=== PATIENT | male | born 1940 | race Caucasian/White ===

== ENCOUNTER 2017-11-08 13:09 | Inpatient (IN) | payer OTHER ==
--- NOTE | 2017-11-08 14:18 | ED Physician Chart ---
ED Chief Complaint/HPI - Patient Information Date Seen:: 11/08/17 Time Seen:: 14:00 Chief Complaint:: suicide ideation History of Present Illness:: Patient's been having suicidal ideation for more than one month. He states he would like to go to sleep and not wake up. He also thought about jumping off a second story of his house. ED Review of Systems - Review of Systems General/Constitutional: No fever, No chills Skin: No skin lesions Head: No headache Eyes: No loss of vision ENT: No earache Neck: No neck pain Cardio Vascular: No chest pain Pulmonary: No SOB GI: No nausea, No vomiting, No diarrhea G/U: No dysuria Musculoskeletal: No bone or joint pain Endocrine: No polyuria, No polydipsia Psychiatric: Prior psych history Hematopoietic: No bruising Allergic/Immuno: No urticaria Neurological: No syncope ED Past Medical History - Past Medical History Past Medical History: CAD, Other (status post myocardial infarction; benign prostatic hypertrophy) Family History: Heart disease, Cancer Social History: Non Smoker, No Alcohol, No Drug Use Surgical History: other (left shoulder) Psychiatricy History: Depression Medication: Reviewed Family Medical History - Family Member Mother Age: 70 Ethnicity: Non- Living Status: Hx Family Cancer: Yes (LUNG) Father Age: 76 Ethnicity: Non- Living Status: Hx Family Coronary Artery Disease: Yes ([place]) ED Physical Exam - Physical Examination General/Constitutional: Well-developed, well-nourished, Alert, No distress Other Gen/Cons comments:: Alert and oriented to the exact date Head: Atraumatic Eyes: Lids, conjuctiva normal, PERRL Skin: Nl inspection, No rash, No skin lesions, No ecchymosis ENMT: External ears, nose nl, Nasal exam nl, Oropharynx nl Other ENMT comments:: 3 out of 4 periodontal disease Neck: No nuchal rigidity Respiratory: Nl effort/Exclusion, Clear to Auscultation, No Wheeze/Rhonchi/Rales Cardio Vascular: RRR GI: No tenderness/rebounding/guarding : No CVA tenderness Other Extremities comments:: 2 out of 4 pretibial pitting edema Neuro/Psych: Alert/oriented Misc: Normal back ED Labs/Radiology/EKG Results - Lab Results Results: Laboratory Results - last 24 hr 11/08/17 14:27 Urine Source CLEAN C Urine Color YELLOW Urine Clarity CLEAR Urine pH 5.5 Ur Specific [place] >= 1.030 Urine Protein NEGATIVE Urine Glucose (UA) NEGATIVE Urine Ketones NEGATIVE Urine Blood NEGATIVE Urine Nitrate NEGATIVE Urine Bilirubin NEGATIVE Urine Urobilinogen 0.2 Ur Leukocyte Esterase NEGATIVE Urine RBC NONE SEEN Urine WBC NONE SEEN Ur Epithelial Cells NONE SEEN Urine Bacteria NONE SEEN - Radiology Results Results: Laboratory Results - last 24 hr 11/08/17 11/08/17 11/08/17 14:27 14:27 14:27 WBC 5.8 RBC 4.94 Hgb 15.9 Hct 46.8 MCV 94.7 MCH 32.1 H MCHC Differential 33.9 RDW 13.3 Plt Count 194 MPV 8.2 Neutrophils % 62.6 Lymphocytes % 21.6 Monocytes % 12.4 H Eosinophils % 3.3 Basophils % 0.1 Sodium 138 Potassium 3.9 Chloride 103 Carbon Dioxide 28.6 Anion Gap 10.3 BUN 16 Creatinine 1.3 Est GFR ( Amer) TNP Est GFR (Non-Af Amer) TNP BUN/Creatinine Ratio 12.3 Glucose 125 H Calcium 8.9 Total Bilirubin 0.7 AST 19 ALT 25 Alkaline Phosphatase 78 Total Protein 5.9 L Albumin 3.8 L Globulin 2.1 Albumin/Globulin Ratio 1.8 Triglycerides 189 H Cholesterol 109 LDL Cholesterol Direct 49 L HDL Cholesterol 45 Urine Source CLEAN C Urine Color YELLOW Urine Clarity CLEAR Urine pH 5.5 Ur Specific [place] >= 1.030 Urine Protein NEGATIVE Urine Glucose (UA) NEGATIVE Urine Ketones NEGATIVE Urine Blood NEGATIVE Urine Nitrate NEGATIVE Urine Bilirubin NEGATIVE Urine Urobilinogen 0.2 Ur Leukocyte Esterase NEGATIVE Urine RBC NONE SEEN Urine WBC NONE SEEN Ur Epithelial Cells NONE SEEN Urine Bacteria NONE SEEN - EKG Interpretations Rate & Rhythm: normal sinus rhythm with a rate of 91 [place]: normal axis Comments:: Unifocal PVCs; right bundle-branch block ED Septic Shock - . Is Septic Shock (SBP<90, OR Lactate>4 mmol\L) present?: No ED Reassessment (Disposition) - Reassessment Reassessment Condition:: Unchanged - Diagnosis Diagnosis:: Suicidal ideation; depression - Patient Disposition Admitted to:: [facility] Admitting Medical Physician:: Allen Wall Admitting Psych Physician:: Mariel Little Condition at Disposition:: Stable, Unchanged
[2017-11-08 14:32] LABS: URINE MICROSCOPIC INDICATED? YES; URINE SOURCE CLEAN C
[2017-11-08 14:46] LABS: URINE BILIRUBIN NEGATIVE (NEGATIVE); URINE BLOOD NEGATIVE (NEGATIVE); URINE GLUCOSE (UA) NEGATIVE (NEGATIVE); URINE KETONE NEGATIVE (NEGATIVE); URINE LEUKOCYTE ESTERASE NEGATIVE (NEGATIVE); URINE NITRATE NEGATIVE (NEGATIVE); URINE PH 5.5 (4.6 - 8.0); URINE PROTEIN NEGATIVE (NEGATIVE); URINE UROBILINOGEN 0.2 E.U./dL (0.2 - 1.0)
[2017-11-08 14:50] LABS: URINE CLARITY CLEAR (CLEAR); URINE COLOR YELLOW
[2017-11-08 14:51] LABS: URINE BACTERIA NONE SEEN /hpf (NONE SEEN); URINE EPITHELIAL CELLS NONE SEEN /lpf (FEW); URINE RBC NONE SEEN /hpf (0-5); URINE WBC NONE SEEN /hpf (0-5)
[2017-11-08 14:58] LABS: ALB/GLOB RATIO 1.8 (1.0-1.8); ALBUMIN 3.8 gm/dL (4.2-5.5); ALKALINE PHOSPHATASE 78 U/L (34-104); ANION GAP 10.3 (7.0-16.0); BILIRUBIN,TOTAL 0.7 mg/dL (0.3-1.0); BUN - UREA NITROGEN 16 mg/dL (7-25); CALCIUM SERUM 8.9 mg/dL (8.6-10.3); CARBON DIOXIDE 28.6 mEq/L (21.0-31.0); CHLORIDE 103 mEq/L (98-107); CHOLESTEROL 109 mg/dL (<200); GLUCOSE 125 mg/dL (70-105); HDL -HIGH DENSITY LIPOPROTEIN 45 mg/dL (23-92); POTASSIUM SERUM 3.9 mEq/L (3.5-5.1); SGOT 19 U/L (13-39); SGPT/ALT 25 U/L (7-52); SODIUM SERUM 138 mEq/L (136-145); TOTAL PROTEIN,SERUM 5.9 gm/dL (6.0-8.3); TRIGLYCERIDES 189 mg/dL (<150)
[2017-11-08 15:11] LABS: % BASOPHILS 0.1 % (0.0-2.0); % EOSINOPHILS 3.3 % (0.0-5.0); % LYMPHOCYTES 21.6 % (20.0-50.0); % MONOCYTES 12.4 % (2.0-10.0); % NEUTROPHILS 62.6 % (40.0-80.0); EOSINOPHILE ABSOLUTE 0.2 Th/cmm (0.1-0.4); HEMATOCRIT 46.8 % (41.0-60); HEMOGLOBIN 15.9 gm/dL (12-16); LYMPHOCYTE ABSOLUTE 1.3 Th/cmm (1.5-3.0); MEAN CELL VOLUME 94.7 fl (80-99); MEAN CORPUSCULAR HEMOGLOBIN 32.1 pg (27.0-31.0); MEAN CORPUSCULAR HGB CONC 33.9 pg (28.0-36.0); MEAN PLATELET VOLUME 8.2 fl; MONOCYTE ABSOLUTE 0.7 Th/cmm (0.3-1.0); NEUTROPHILE ABSOLUTE 3.6 Th/cmm (1.8-8.0); PLATELET COUNT 194 Th/cmm (150-400); RED BLOOD COUNT 4.94 Mil/cmm (3.80-5.80); RED CELL DISTRIBUTION WIDTH 13.3 % (11.5-20.0); WHITE BLOOD COUNT 5.8 Th/cmm (4.8-10.8)
[2017-11-08 15:36] LABS: CREATININE - SERUM 1.3 mg/dL (0.7-1.3)
[2017-11-08 17:10] VITALS: BP 135/75
[2017-11-08] MEDS ORDERED: Magnesium Hydroxide (MOM) 30 mL UDC PO PRN (18:45)
[2017-11-08] MEDS ORDERED: Maalox 30 mL Cup PO PRN (18:45)
[2017-11-09] MEDS: Multivitamin Tab PO SCH (09:06)
--- NOTE | 2017-11-09 15:22 | Internal Medicine Prog Note ---
Internal Medicine Subjective - Subjective Service Date: 11/09/17 ([id number]) Internal Medicine Objective - Results Result Diagrams: 11/08/17 14:27 11/08/17 14:27 Recent Labs: Laboratory Last Values WBC 5.8 Th/cmm (4.8-10.8) 11/08/17 14:27 RBC 4.94 Mil/cmm (3.80-5.80) 11/08/17 14:27 Hgb 15.9 gm/dL (12-16) 11/08/17 14:27 Hct 46.8 % (41.0-60) 11/08/17 14:27 MCV 94.7 fl (80-99) 11/08/17 14:27 MCH 32.1 pg (27.0-31.0) H 11/08/17 14:27 MCHC Differential 33.9 pg (28.0-36.0) 11/08/17 14:27 RDW 13.3 % (11.5-20.0) 11/08/17 14:27 Plt Count 194 Th/cmm (150-400) 11/08/17 14:27 MPV 8.2 fl 11/08/17 14:27 Neutrophils % 62.6 % (40.0-80.0) 11/08/17 14:27 Lymphocytes % 21.6 % (20.0-50.0) 11/08/17 14:27 Monocytes % 12.4 % (2.0-10.0) H 11/08/17 14:27 Eosinophils % 3.3 % (0.0-5.0) 11/08/17 14:27 Basophils % 0.1 % (0.0-2.0) 11/08/17 14:27 Sodium 138 mEq/L (136-145) 11/08/17 14:27 Potassium 3.9 mEq/L (3.5-5.1) 11/08/17 14:27 Chloride 103 mEq/L (98-107) 11/08/17 14:27 Carbon Dioxide 28.6 mEq/L (21.0-31.0) 11/08/17 14:27 Anion Gap 10.3 (7.0-16.0) 11/08/17 14:27 BUN 16 mg/dL (7-25) 11/08/17 14:27 Creatinine 1.3 mg/dL (0.7-1.3) 11/08/17 14:27 Est GFR ( Amer) TNP 11/08/17 14:27 Est GFR (Non-Af Amer) TNP 11/08/17 14:27 BUN/Creatinine Ratio 12.3 11/08/17 14:27 Glucose 125 mg/dL (70-105) H 11/08/17 14:27 Calcium 8.9 mg/dL (8.6-10.3) 11/08/17 14:27 Total Bilirubin 0.7 mg/dL (0.3-1.0) 11/08/17 14:27 AST 19 U/L (13-39) 11/08/17 14:27 ALT 25 U/L (7-52) 11/08/17 14:27 Alkaline Phosphatase 78 U/L (34-104) 11/08/17 14:27 Total Protein 5.9 gm/dL (6.0-8.3) L 11/08/17 14:27 Albumin 3.8 gm/dL (4.2-5.5) L 11/08/17 14:27 Globulin 2.1 gm/dL 11/08/17 14:27 Albumin/Globulin Ratio 1.8 (1.0-1.8) 11/08/17 14:27 Triglycerides 189 mg/dL (<150) H 11/08/17 14:27 Cholesterol 109 mg/dL (<200) 11/08/17 14:27 LDL Cholesterol Direct 49 mg/dL (75-193) L 11/08/17 14:27 HDL Cholesterol 45 mg/dL (23-92) 11/08/17 14:27 TSH 2.55 uIU/ml (0.34-5.60) 11/08/17 14:27 Urine Source CLEAN C 11/08/17 14:27 Urine Color YELLOW 11/08/17 14:27 Urine Clarity CLEAR (CLEAR) 11/08/17 14:27 Urine pH 5.5 (4.6 - 8.0) 11/08/17 14:27 Ur Specific [place] >= 1.030 (1.005-1.030) 11/08/17 14:27 Urine Protein NEGATIVE mg/dL (NEGATIVE) 11/08/17 14:27 Urine Glucose (UA) NEGATIVE mg/dL (NEGATIVE) 11/08/17 14:27 Urine Ketones NEGATIVE mg/dL (NEGATIVE) 11/08/17 14:27 Urine Blood NEGATIVE (NEGATIVE) 11/08/17 14:27 Urine Nitrate NEGATIVE (NEGATIVE) 11/08/17 14:27 Urine Bilirubin NEGATIVE (NEGATIVE) 11/08/17 14:27 Urine Urobilinogen 0.2 E.U./dL (0.2 - 1.0) 11/08/17 14:27 Ur Leukocyte Esterase NEGATIVE (NEGATIVE) 11/08/17 14:27 Urine RBC NONE SEEN /hpf (0-5) 11/08/17 14:27 Urine WBC NONE SEEN /hpf (0-5) 11/08/17 14:27 Ur Epithelial Cells NONE SEEN /lpf (FEW) 11/08/17 14:27 Urine Bacteria NONE SEEN /hpf (NONE SEEN) 11/08/17 14:27 RPR NONREACTIVE (NONREACTIVE) 11/08/17 14:27 - Physical Exam Vitals and I&O: Vital Signs Temp 97.8 F 11/08/17 20:00 Pulse 102 11/08/17 20:00 Resp 20 11/08/17 20:00 BP 122/74 11/08/17 20:00 Pulse Ox 97 11/08/17 20:00 Active Medications: Current Medications Acetaminophen (Tylenol) 650 mg PO Q4HR PRN PRN Reason: Mild Pain / Temp above 100 Stop: 01/07/18 18:44 Al Hydrox/Mg Hydrox/Simethicone (Maalox) 30 ml PO Q4HR PRN PRN Reason: GI DISTRESS Stop: 01/07/18 18:44 Aspirin (Aspirin Chewable) 81 mg PO DAILY [facility] Stop: 01/09/18 08:59 Carvedilol (Coreg) 6.25 mg PO BID [facility] Stop: 01/08/18 16:59 Clopidogrel Bisulfate (Plavix) 75 mg PO DAILY [facility] Stop: 01/09/18 08:59 Finasteride (Proscar) 5 mg PO DAILY [facility] PRN Reason: Protocol Stop: 01/09/18 08:59 Lorazepam (Ativan) 0.5 mg PO Q4HR PRN; Protocol PRN Reason: Anxiety Stop: 12/08/17 18:44 Lorazepam (Ativan) 0.5 mg PO DAILY [facility] PRN Reason: Protocol Stop: 01/09/18 08:59 Magnesium Hydroxide (Milk Of Magnesia) 30 ml PO HS PRN PRN Reason: Constipation Multivitamins/Vitamin C (Theragran) 1 tab PO DAILY [facility] Stop: 01/08/18 08:59 Last Admin: 11/09/17 09:06 Dose: 1 tab Naproxen (Naprosyn) 250 mg PO Q12H PRN PRN Reason: Pain (Mild) Stop: 01/08/18 13:19 Quetiapine Fumarate (Seroquel) 25 mg PO BID [facility] PRN Reason: Protocol Stop: 01/08/18 16:59 Simvastatin (Zocor) 10 mg PO QPM [facility] PRN Reason: Protocol Stop: 01/08/18 16:59 Tamsulosin HCl (Flomax) 0.4 mg PO DAILY [facility] Stop: 01/09/18 08:59 Temazepam (Restoril) 15 mg PO HS PRN; Protocol PRN Reason: Insomnia Stop: 01/08/18 13:19 Vitamin E (Vitamin E) 1,000 iu PO DAILY [facility] Stop: 01/09/18 08:59 Zolpidem Tartrate (Ambien) 5 mg PO HS PRN PRN Reason: Insomnia Stop: 01/07/18 18:44 Last Admin: 11/08/17 22:19 Dose: 5 mg
--- NOTE | 2017-11-09 19:07 | History & Physical ---
ADMIT DATE: 11/09/2017 CHIEF COMPLAINT: Suicidal ideation. HISTORY OF PRESENT ILLNESS: This is a 77-year-old male who has been having suicidal ideation for about a month. The patient is now admitted to the Geropsych Unit. PAST MEDICAL HISTORY: CAD, status post VT, BPH. FAMILY HISTORY: Noncontributory. SOCIAL HISTORY: The patient denies any alcohol or illicit drug usage and tobacco smoking. SURGICAL HISTORY: Left shoulder. MEDICATIONS: Please see medication reconciliation. REVIEW OF SYSTEMS: GENERAL: Denies any fevers and chills. CARDIOVASCULAR: Denies chest pain. RESPIRATORY: Denies shortness of breath. GASTROINTESTINAL: Denies nausea, vomiting, abdominal pain. GENITOURINARY: Denies increased frequency or dysuria. NEUROLOGIC: No headaches, seizures or syncope. PSYCHIATRIC: As stated above. EXTREMITIES: No leg pain or swelling. PHYSICAL EXAMINATION: GENERAL: The patient is well-developed, well-nourished, no acute distress. VITAL SIGNS: Temperature at 97.8, heart rate ___, blood pressure 122/74, respirations 20, O2 sat 97%. HEENT: Head; normocephalic, atraumatic. NECK: Supple. No mass. LUNGS: Clear bilaterally. HEART: Regular rhythm. ABDOMEN: Soft, nontender. LABORATORY DATA: WBC 5.8, H and H 15.9 and 46.8, platelet of 194. Sodium 138, potassium 3.9, chloride 103, BUN 16, creatinine 1.3. ASSESSMENT: 1. Suicidal ideation. 2. History of coronary artery disease. 3. History of VT. 4. BPH. PLAN: We will continue the patient's home medications. Fall precautions will be initiated. We will continue to follow this patient. JOB# [id number]
--- NOTE | 2017-11-10 01:31 | Psychosocial Evaluation ---
DATE OF SERVICE: 11/08/2017 IDENTIFYING DATA: The patient is a 77-year-old male living with his family. Information obtained by directly interviewing the patient as well as reviewing the admission papers and they are reliable. JUSTIFICATION FOR HOSPITALIZATION: The patient is admitted here on a voluntary basis in view of his acute psychosis. CHIEF COMPLAINT: "I don't know what is happening in here and there is not much for me to do in here." HISTORY OF PRESENT ILLNESS: This is the first psychiatric hospitalization to [facility] for this patient who is reported to have been acting erratic and has been agitated and has been throwing stuff. The patient has been noted to be on Seroquel 25 mg twice a day along with Restoril and Ativan. The patient's sleep and appetite prior to the hospitalization are reported to be poor. When I am asking the details about the information, the patient is getting easily irritable and is stating that everything is written I need to look into the paperwork. PAST PSYCHIATRIC HISTORY: Details are not known. MEDICAL HISTORY AND PHYSICAL EXAMINATION: Requested to be done by Dr. Wall. SUBSTANCE ABUSE HISTORY: None. PHYSICAL OR SEXUAL ABUSE HISTORY: None. LEGAL PROBLEMS: None at this time. STRENGTH AND ASSETS: The patient is motivated. MENTAL STATUS EXAMINATION: The patient is a 77-year-old, looking his stated age, superficially cooperative. Eye contact is poor. Mood is noted to be irritable. Affect is constricted. The patient is dysphoric. The patient has been having difficult time to cope with the stress. The patient is not able to contract for safety. The patient is reported to have been getting easily agitated and has been trying to be very disruptive. The patient has been denying any command hallucination, but the patient is noted to be very paranoid and has been stating that the noise has been bothering him and he does not belong in here. The patient's attention span and concentration are noted to be fair. Short and long-term are noted to be fair at this time. DIAGNOSES AT THE TIME OF ADMISSION: AXIS I: Psychotic disorder, not otherwise specified. AXIS II: None. AXIS III: As per Dr. Wall. IMMEDIATE TREATMENT PLAN: The patient is going to be observed on inpatient unit, provided with supportive psychotherapy. The patient is going to be closely monitored. Once stabilized, the patient is going to be discharged to [facility] to be followed up on an outpatient basis. JOB# [id number]
[2017-11-10] MEDS: Multivitamin Tab PO SCH (09:23)
[2017-11-10] MEDS: Aspirin 81mg Chewable Tab PO SCH (09:23)
[2017-11-10] MEDS: Vitamin E 1,000 IU Sgl PO SCH (09:23)
--- NOTE | 2017-11-10 17:10 | Internal Medicine Prog Note ---
Internal Medicine Subjective - Subjective Service Date: 11/10/17 Patient seen and examined:: with staff Patient is:: awake Per staff patient has:: no adverse event, tolerating meds Internal Medicine Objective - Results Result Diagrams: 11/08/17 14:27 11/08/17 14:27 Recent Labs: Laboratory Last Values WBC 5.8 Th/cmm (4.8-10.8) 11/08/17 14:27 RBC 4.94 Mil/cmm (3.80-5.80) 11/08/17 14:27 Hgb 15.9 gm/dL (12-16) 11/08/17 14:27 Hct 46.8 % (41.0-60) 11/08/17 14:27 MCV 94.7 fl (80-99) 11/08/17 14:27 MCH 32.1 pg (27.0-31.0) H 11/08/17 14:27 MCHC Differential 33.9 pg (28.0-36.0) 11/08/17 14:27 RDW 13.3 % (11.5-20.0) 11/08/17 14:27 Plt Count 194 Th/cmm (150-400) 11/08/17 14:27 MPV 8.2 fl 11/08/17 14:27 Neutrophils % 62.6 % (40.0-80.0) 11/08/17 14:27 Lymphocytes % 21.6 % (20.0-50.0) 11/08/17 14:27 Monocytes % 12.4 % (2.0-10.0) H 11/08/17 14:27 Eosinophils % 3.3 % (0.0-5.0) 11/08/17 14:27 Basophils % 0.1 % (0.0-2.0) 11/08/17 14:27 Sodium 138 mEq/L (136-145) 11/08/17 14:27 Potassium 3.9 mEq/L (3.5-5.1) 11/08/17 14:27 Chloride 103 mEq/L (98-107) 11/08/17 14:27 Carbon Dioxide 28.6 mEq/L (21.0-31.0) 11/08/17 14:27 Anion Gap 10.3 (7.0-16.0) 11/08/17 14:27 BUN 16 mg/dL (7-25) 11/08/17 14:27 Creatinine 1.3 mg/dL (0.7-1.3) 11/08/17 14:27 Est GFR ( Amer) TNP 11/08/17 14:27 Est GFR (Non-Af Amer) TNP 11/08/17 14:27 BUN/Creatinine Ratio 12.3 11/08/17 14:27 Glucose 125 mg/dL (70-105) H 11/08/17 14:27 Calcium 8.9 mg/dL (8.6-10.3) 11/08/17 14:27 Total Bilirubin 0.7 mg/dL (0.3-1.0) 11/08/17 14:27 AST 19 U/L (13-39) 11/08/17 14:27 ALT 25 U/L (7-52) 11/08/17 14:27 Alkaline Phosphatase 78 U/L (34-104) 11/08/17 14:27 Total Protein 5.9 gm/dL (6.0-8.3) L 11/08/17 14:27 Albumin 3.8 gm/dL (4.2-5.5) L 11/08/17 14:27 Globulin 2.1 gm/dL 11/08/17 14:27 Albumin/Globulin Ratio 1.8 (1.0-1.8) 11/08/17 14:27 Triglycerides 189 mg/dL (<150) H 11/08/17 14:27 Cholesterol 109 mg/dL (<200) 11/08/17 14:27 LDL Cholesterol Direct 49 mg/dL (75-193) L 11/08/17 14:27 HDL Cholesterol 45 mg/dL (23-92) 11/08/17 14:27 TSH 2.55 uIU/ml (0.34-5.60) 11/08/17 14:27 Urine Source CLEAN C 11/08/17 14:27 Urine Color YELLOW 11/08/17 14:27 Urine Clarity CLEAR (CLEAR) 11/08/17 14:27 Urine pH 5.5 (4.6 - 8.0) 11/08/17 14:27 Ur Specific [place] >= 1.030 (1.005-1.030) 11/08/17 14:27 Urine Protein NEGATIVE mg/dL (NEGATIVE) 11/08/17 14:27 Urine Glucose (UA) NEGATIVE mg/dL (NEGATIVE) 11/08/17 14:27 Urine Ketones NEGATIVE mg/dL (NEGATIVE) 11/08/17 14:27 Urine Blood NEGATIVE (NEGATIVE) 11/08/17 14:27 Urine Nitrate NEGATIVE (NEGATIVE) 11/08/17 14:27 Urine Bilirubin NEGATIVE (NEGATIVE) 11/08/17 14:27 Urine Urobilinogen 0.2 E.U./dL (0.2 - 1.0) 11/08/17 14:27 Ur Leukocyte Esterase NEGATIVE (NEGATIVE) 11/08/17 14:27 Urine RBC NONE SEEN /hpf (0-5) 11/08/17 14:27 Urine WBC NONE SEEN /hpf (0-5) 11/08/17 14:27 Ur Epithelial Cells NONE SEEN /lpf (FEW) 11/08/17 14:27 Urine Bacteria NONE SEEN /hpf (NONE SEEN) 11/08/17 14:27 RPR NONREACTIVE (NONREACTIVE) 11/08/17 14:27 - Physical Exam Vitals and I&O: Vital Signs Temp 97.3 F 11/09/17 16:21 Pulse 77 11/10/17 09:23 Resp 20 11/09/17 16:21 BP 150/89 11/10/17 09:23 Pulse Ox 98 11/09/17 16:21 Intake & Output 11/09/17 11/10/17 11/10/17 18:59 06:59 18:59 Intake Total 800 Balance 800 Intake: Oral 800 Other: # Voids 2 # Bowel Movements 1 Active Medications: Current Medications Acetaminophen (Tylenol) 650 mg PO Q4HR PRN PRN Reason: Mild Pain / Temp above 100 Stop: 01/07/18 18:44 Al Hydrox/Mg Hydrox/Simethicone (Maalox) 30 ml PO Q4HR PRN PRN Reason: GI DISTRESS Stop: 01/07/18 18:44 Aspirin (Aspirin Chewable) 81 mg PO DAILY [facility] Stop: 01/09/18 08:59 Last Admin: 11/10/17 09:23 Dose: 81 mg Carvedilol (Coreg) 6.25 mg PO BID [facility] Stop: 01/08/18 16:59 Last Admin: 11/10/17 09:23 Dose: 6.25 mg Clopidogrel Bisulfate (Plavix) 75 mg PO DAILY [facility] Stop: 01/09/18 08:59 Last Admin: 11/10/17 09:23 Dose: 75 mg Finasteride (Proscar) 5 mg PO DAILY [facility] PRN Reason: Protocol Stop: 01/09/18 08:59 Last Admin: 11/10/17 09:23 Dose: 5 mg Lorazepam (Ativan) 0.5 mg PO Q4HR PRN; Protocol PRN Reason: Anxiety Stop: 12/08/17 18:44 Magnesium Hydroxide (Milk Of Magnesia) 30 ml PO HS PRN PRN Reason: Constipation Multivitamins/Vitamin C (Theragran) 1 tab PO DAILY [facility] Stop: 01/08/18 08:59 Last Admin: 11/10/17 09:23 Dose: 1 tab Naproxen (Naprosyn) 250 mg PO Q12H PRN PRN Reason: Pain (Mild) Stop: 01/08/18 13:19 Quetiapine Fumarate (Seroquel) 25 mg PO BID [facility] PRN Reason: Protocol Stop: 01/08/18 16:59 Last Admin: 11/10/17 09:24 Dose: 25 mg Simvastatin (Zocor) 10 mg PO QPM [facility] PRN Reason: Protocol Stop: 01/08/18 16:59 Last Admin: 11/09/17 16:39 Dose: 10 mg Tamsulosin HCl (Flomax) 0.4 mg PO DAILY [facility] Stop: 01/09/18 08:59 Last Admin: 11/10/17 09:23 Dose: 0.4 mg Temazepam (Restoril) 15 mg PO HS PRN; Protocol PRN Reason: Insomnia Stop: 01/08/18 13:19 Last Admin: 11/09/17 21:18 Dose: 15 mg Vitamin E (Vitamin E) 1,000 iu PO DAILY [facility] Stop: 01/09/18 08:59 Last Admin: 11/10/17 09:23 Dose: 1,000 iu General: alert HEENT: NC/AT, PERRLA Neck: Supple Lungs: CTAB Cardiovascular: RRR, Normal S1, Normal S2 Abdomen: soft, non-tender, non-distended Neurological: alert Internal Medicine Assmt/Plan - Assessment Assessment: suicidal ideation hx cad 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
--- NOTE | 2017-11-10 18:15 | Progress Notes ---
DATE: 11/10/2017 SUBJECTIVE: Staff was spoken to. The patient is interviewed. Mood is noted to be irritable. Affect is constricted. Insight and judgment are still impaired. The patient is reported to have been having problems in coping with the stress and wanted to end his life. The patient has no insight into his illness. ASSESSMENT: The patient is still not able to contract for his safety. PLAN: The patient is not ready to be discharged to a lower level of care. JOB# [id number]
[2017-11-11] MEDS: Aspirin 81mg Chewable Tab PO SCH (09:31)
[2017-11-11] MEDS: Multivitamin Tab PO SCH (09:34)
[2017-11-11] MEDS: Vitamin E 1,000 IU Sgl PO SCH (09:34)
--- NOTE | 2017-11-11 15:48 | Internal Medicine Prog Note ---
Internal Medicine Subjective - Subjective Service Date: 11/11/17 Patient is:: awake Per staff patient has:: no adverse event, tolerating meds Internal Medicine Objective - Results Result Diagrams: 11/08/17 14:27 11/08/17 14:27 Recent Labs: Laboratory Last Values WBC 5.8 Th/cmm (4.8-10.8) 11/08/17 14:27 RBC 4.94 Mil/cmm (3.80-5.80) 11/08/17 14:27 Hgb 15.9 gm/dL (12-16) 11/08/17 14:27 Hct 46.8 % (41.0-60) 11/08/17 14:27 MCV 94.7 fl (80-99) 11/08/17 14:27 MCH 32.1 pg (27.0-31.0) H 11/08/17 14:27 MCHC Differential 33.9 pg (28.0-36.0) 11/08/17 14:27 RDW 13.3 % (11.5-20.0) 11/08/17 14:27 Plt Count 194 Th/cmm (150-400) 11/08/17 14:27 MPV 8.2 fl 11/08/17 14:27 Neutrophils % 62.6 % (40.0-80.0) 11/08/17 14:27 Lymphocytes % 21.6 % (20.0-50.0) 11/08/17 14:27 Monocytes % 12.4 % (2.0-10.0) H 11/08/17 14:27 Eosinophils % 3.3 % (0.0-5.0) 11/08/17 14:27 Basophils % 0.1 % (0.0-2.0) 11/08/17 14:27 Sodium 138 mEq/L (136-145) 11/08/17 14:27 Potassium 3.9 mEq/L (3.5-5.1) 11/08/17 14:27 Chloride 103 mEq/L (98-107) 11/08/17 14:27 Carbon Dioxide 28.6 mEq/L (21.0-31.0) 11/08/17 14:27 Anion Gap 10.3 (7.0-16.0) 11/08/17 14:27 BUN 16 mg/dL (7-25) 11/08/17 14:27 Creatinine 1.3 mg/dL (0.7-1.3) 11/08/17 14:27 Est GFR ( Amer) TNP 11/08/17 14:27 Est GFR (Non-Af Amer) TNP 11/08/17 14:27 BUN/Creatinine Ratio 12.3 11/08/17 14:27 Glucose 125 mg/dL (70-105) H 11/08/17 14:27 Calcium 8.9 mg/dL (8.6-10.3) 11/08/17 14:27 Total Bilirubin 0.7 mg/dL (0.3-1.0) 11/08/17 14:27 AST 19 U/L (13-39) 11/08/17 14:27 ALT 25 U/L (7-52) 11/08/17 14:27 Alkaline Phosphatase 78 U/L (34-104) 11/08/17 14:27 Total Protein 5.9 gm/dL (6.0-8.3) L 11/08/17 14:27 Albumin 3.8 gm/dL (4.2-5.5) L 11/08/17 14:27 Globulin 2.1 gm/dL 11/08/17 14: Albumin/Globulin Ratio 1.8 (1.0-1.8) 11/08/17 14:27 Triglycerides 189 mg/dL (<150) H 11/08/17 14:27 Cholesterol 109 mg/dL (<200) 11/08/17 14:27 LDL Cholesterol Direct 49 mg/dL (75-193) L 11/08/17 14:27 HDL Cholesterol 45 mg/dL (23-92) 11/08/17 14:27 TSH 2.55 uIU/ml (0.34-5.60) 11/08/17 14:27 Urine Source CLEAN C 11/08/17 14:27 Urine Color YELLOW 11/08/17 14:27 Urine Clarity CLEAR (CLEAR) 11/08/17 14:27 Urine pH 5.5 (4.6 - 8.0) 11/08/17 14:27 Ur Specific [place] >= 1.030 (1.005-1.030) 11/08/17 14:27 Urine Protein NEGATIVE mg/dL (NEGATIVE) 11/08/17 14:27 Urine Glucose (UA) NEGATIVE mg/dL (NEGATIVE) 11/08/17 14:27 Urine Ketones NEGATIVE mg/dL (NEGATIVE) 11/08/17 14:27 Urine Blood NEGATIVE (NEGATIVE) 11/08/17 14:27 Urine Nitrate NEGATIVE (NEGATIVE) 11/08/17 14:27 Urine Bilirubin NEGATIVE (NEGATIVE) 11/08/17 14:27 Urine Urobilinogen 0.2 E.U./dL (0.2 - 1.0) 11/08/17 14:27 Ur Leukocyte Esterase NEGATIVE (NEGATIVE) 11/08/17 14:27 Urine RBC NONE SEEN /hpf (0-5) 11/08/17 14:27 Urine WBC NONE SEEN /hpf (0-5) 11/08/17 14:27 Ur Epithelial Cells NONE SEEN /lpf (FEW) 11/08/17 14:27 Urine Bacteria NONE SEEN /hpf (NONE SEEN) 11/08/17 14:27 RPR NONREACTIVE (NONREACTIVE) 11/08/17 14:27 - Physical Exam Vitals and I&O: Vital Signs Temp 97 F 11/10/17 18:17 Pulse 70 11/11/17 09:35 Resp 18 11/10/17 18:17 BP 140/80 11/11/17 09:35 Pulse Ox 95 11/10/17 18:17 Intake & Output 11/10/17 11/11/17 11/11/17 18:59 06:59 18:59 Intake Total 120 Balance 120 Intake: Oral 120 Other: # Voids 2 Active Medications: Current Medications Acetaminophen (Tylenol) 650 mg PO Q4HR PRN PRN Reason: Mild Pain / Temp above 100 Stop: 01/07/18 18:44 Al Hydrox/Mg Hydrox/Simethicone (Maalox) 30 ml PO Q4HR PRN PRN Reason: GI DISTRESS Stop: 01/07/18 18:44 Aspirin (Aspirin Chewable) 81 mg PO DAILY [facility] Stop: 01/09/18 08:59 Last Admin: 11/11/17 09:31 Dose: 81 mg Carvedilol (Coreg) 6.25 mg PO BID [facility] Stop: 01/08/18 16:59 Last Admin: 11/11/17 09:35 Dose: 6.25 mg Clopidogrel Bisulfate (Plavix) 75 mg PO DAILY [facility] Stop: 01/09/18 08:59 Last Admin: 11/11/17 09:34 Dose: 75 mg Finasteride (Proscar) 5 mg PO DAILY [facility] PRN Reason: Protocol Stop: 01/09/18 08:59 Last Admin: 11/11/17 09:34 Dose: 5 mg Lorazepam (Ativan) 0.5 mg PO Q4HR PRN; Protocol PRN Reason: Anxiety Stop: 12/08/17 18:44 Last Admin: 11/10/17 21:23 Dose: 0.5 mg Magnesium Hydroxide (Milk Of Magnesia) 30 ml PO HS PRN PRN Reason: Constipation Multivitamins/Vitamin C (Theragran) 1 tab PO DAILY [facility] Stop: 01/08/18 08:59 Last Admin: 11/11/17 09:34 Dose: 1 tab Naproxen (Naprosyn) 250 mg PO Q12H PRN PRN Reason: Pain (Mild) Stop: 01/08/18 13:19 Quetiapine Fumarate (Seroquel) 25 mg PO BID [facility] PRN Reason: Protocol Stop: 01/08/18 16:59 Last Admin: 11/11/17 09:34 Dose: 25 mg Simvastatin (Zocor) 10 mg PO QPM [facility] PRN Reason: Protocol Stop: 01/08/18 16:59 Last Admin: 11/10/17 16:53 Dose: 10 mg Tamsulosin HCl (Flomax) 0.4 mg PO DAILY [facility] Stop: 01/09/18 08:59 Last Admin: 11/11/17 09:34 Dose: 0.4 mg Temazepam (Restoril) 15 mg PO HS PRN; Protocol PRN Reason: Insomnia Stop: 01/08/18 13:19 Last Admin: 11/10/17 21:24 Dose: 15 mg Vitamin E (Vitamin E) 1,000 iu PO DAILY [facility] Stop: 01/09/18 08:59 Last Admin: 11/11/17 09:34 Dose: 1,000 iu General: alert HEENT: NC/AT, PERRLA Neck: Supple Lungs: CTAB Cardiovascular: RRR, Normal S1, Normal S2 Abdomen: soft, non-tender, non-distended Neurological: alert Internal Medicine Assmt/Plan - Assessment Assessment: suicidal ideation hx cad 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
--- NOTE | 2017-11-11 23:15 | Progress Notes ---
DATE: 11/11/2017 SUBJECTIVE: Staff was spoken to. Patient is interviewed. Mood is weak and depressed. Affect is constricted. The patient is isolated and withdrawn. The patient is stating that his daughter and his son came by yesterday had a good visit. The patient is stating that he likes to sing and then he states that he has been participating in the groups. ASSESSMENT: The patient continues to be still depressed. PLAN: To continue the patient with the supportive therapy, encouraged the patient to verbalize the concerns rather than to act out. JOB# [id number]
[2017-11-12] MEDS: Aspirin 81mg Chewable Tab PO SCH (10:29)
[2017-11-12] MEDS: Multivitamin Tab PO SCH (10:30)
[2017-11-12] MEDS: Vitamin E 1,000 IU Sgl PO SCH (10:30)
--- NOTE | 2017-11-12 13:16 | Internal Medicine Prog Note ---
Internal Medicine Subjective - Subjective Service Date: 11/12/17 Patient is:: awake Per staff patient has:: no adverse event, tolerating meds Internal Medicine Objective - Results Result Diagrams: 11/08/17 14:27 11/08/17 14:27 Recent Labs: Laboratory Last Values WBC 5.8 Th/cmm (4.8-10.8) 11/08/17 14:27 RBC 4.94 Mil/cmm (3.80-5.80) 11/08/17 14:27 Hgb 15.9 gm/dL (12-16) 11/08/17 14:27 Hct 46.8 % (41.0-60) 11/08/17 14:27 MCV 94.7 fl (80-99) 11/08/17 14:27 MCH 32.1 pg (27.0-31.0) H 11/08/17 14:27 MCHC Differential 33.9 pg (28.0-36.0) 11/08/17 14:27 RDW 13.3 % (11.5-20.0) 11/08/17 14:27 Plt Count 194 Th/cmm (150-400) 11/08/17 14:27 MPV 8.2 fl 11/08/17 14:27 Neutrophils % 62.6 % (40.0-80.0) 11/08/17 14:27 Lymphocytes % 21.6 % (20.0-50.0) 11/08/17 14:27 Monocytes % 12.4 % (2.0-10.0) H 11/08/17 14:27 Eosinophils % 3.3 % (0.0-5.0) 11/08/17 14:27 Basophils % 0.1 % (0.0-2.0) 11/08/17 14:27 Sodium 138 mEq/L (136-145) 11/08/17 14:27 Potassium 3.9 mEq/L (3.5-5.1) 11/08/17 14:27 Chloride 103 mEq/L (98-107) 11/08/17 14:27 Carbon Dioxide 28.6 mEq/L (21.0-31.0) 11/08/17 14:27 Anion Gap 10.3 (7.0-16.0) 11/08/17 14:27 BUN 16 mg/dL (7-25) 11/08/17 14:27 Creatinine 1.3 mg/dL (0.7-1.3) 11/08/17 14:27 Est GFR ( Amer) TNP 11/08/17 14:27 Est GFR (Non-Af Amer) TNP 11/08/17 14:27 BUN/Creatinine Ratio 12.3 11/08/17 14:27 Glucose 125 mg/dL (70-105) H 11/08/17 14:27 Calcium 8.9 mg/dL (8.6-10.3) 11/08/17 14:27 Total Bilirubin 0.7 mg/dL (0.3-1.0) 11/08/17 14:27 AST 19 U/L (13-39) 11/08/17 14:27 ALT 25 U/L (7-52) 11/08/17 14:27 Alkaline Phosphatase 78 U/L (34-104) 11/08/17 14:27 Total Protein 5.9 gm/dL (6.0-8.3) L 11/08/17 14:27 Albumin 3.8 gm/dL (4.2-5.5) L 11/08/17 14:27 Globulin 2.1 gm/dL 11/08/17 14: Albumin/Globulin Ratio 1.8 (1.0-1.8) 11/08/17 14:27 Triglycerides 189 mg/dL (<150) H 11/08/17 14:27 Cholesterol 109 mg/dL (<200) 11/08/17 14:27 LDL Cholesterol Direct 49 mg/dL (75-193) L 11/08/17 14:27 HDL Cholesterol 45 mg/dL (23-92) 11/08/17 14:27 TSH 2.55 uIU/ml (0.34-5.60) 11/08/17 14:27 Urine Source CLEAN C 11/08/17 14:27 Urine Color YELLOW 11/08/17 14:27 Urine Clarity CLEAR (CLEAR) 11/08/17 14:27 Urine pH 5.5 (4.6 - 8.0) 11/08/17 14:27 Ur Specific [place] >= 1.030 (1.005-1.030) 11/08/17 14:27 Urine Protein NEGATIVE mg/dL (NEGATIVE) 11/08/17 14:27 Urine Glucose (UA) NEGATIVE mg/dL (NEGATIVE) 11/08/17 14:27 Urine Ketones NEGATIVE mg/dL (NEGATIVE) 11/08/17 14:27 Urine Blood NEGATIVE (NEGATIVE) 11/08/17 14:27 Urine Nitrate NEGATIVE (NEGATIVE) 11/08/17 14:27 Urine Bilirubin NEGATIVE (NEGATIVE) 11/08/17 14:27 Urine Urobilinogen 0.2 E.U./dL (0.2 - 1.0) 11/08/17 14:27 Ur Leukocyte Esterase NEGATIVE (NEGATIVE) 11/08/17 14:27 Urine RBC NONE SEEN /hpf (0-5) 11/08/17 14:27 Urine WBC NONE SEEN /hpf (0-5) 11/08/17 14:27 Ur Epithelial Cells NONE SEEN /lpf (FEW) 11/08/17 14:27 Urine Bacteria NONE SEEN /hpf (NONE SEEN) 11/08/17 14:27 RPR NONREACTIVE (NONREACTIVE) 11/08/17 14:27 - Physical Exam Vitals and I&O: Vital Signs Temp 98.7 F 11/11/17 20:00 Pulse 77 11/12/17 10:29 Resp 20 11/11/17 20:00 BP 118/66 11/12/17 10:29 Pulse Ox 95 11/11/17 20:00 Intake & Output 11/11/17 11/12/17 11/12/17 18:59 06:59 18:59 Intake Total 120 Balance 120 Intake: Oral 120 Other: # Voids 2 Active Medications: Current Medications Acetaminophen (Tylenol) 650 mg PO Q4HR PRN PRN Reason: Mild Pain / Temp above 100 Stop: 01/07/18 18:44 Al Hydrox/Mg Hydrox/Simethicone (Maalox) 30 ml PO Q4HR PRN PRN Reason: GI DISTRESS Stop: 01/07/18 18:44 Aspirin (Aspirin Chewable) 81 mg PO DAILY [facility] Stop: 01/09/18 08:59 Last Admin: 11/12/17 10:29 Dose: 81 mg Carvedilol (Coreg) 6.25 mg PO BID [facility] Stop: 01/08/18 16:59 Last Admin: 11/12/17 10:29 Dose: 6.25 mg Clopidogrel Bisulfate (Plavix) 75 mg PO DAILY [facility] Stop: 01/09/18 08:59 Last Admin: 11/12/17 10:30 Dose: 75 mg Finasteride (Proscar) 5 mg PO DAILY [facility] PRN Reason: Protocol Stop: 01/09/18 08:59 Last Admin: 11/12/17 10:30 Dose: 5 mg Lorazepam (Ativan) 0.5 mg PO Q4HR PRN; Protocol PRN Reason: Anxiety Stop: 12/08/17 18:44 Last Admin: 11/12/17 00:36 Dose: 0.5 mg Magnesium Hydroxide (Milk Of Magnesia) 30 ml PO HS PRN PRN Reason: Constipation Multivitamins/Vitamin C (Theragran) 1 tab PO DAILY [facility] Stop: 01/08/18 08:59 Last Admin: 11/12/17 10:30 Dose: 1 tab Naproxen (Naprosyn) 250 mg PO Q12H PRN PRN Reason: Pain (Mild) Stop: 01/08/18 13:19 Quetiapine Fumarate (Seroquel) 25 mg PO BID [facility] PRN Reason: Protocol Stop: 01/08/18 16:59 Last Admin: 11/12/17 10:30 Dose: 25 mg Simvastatin (Zocor) 10 mg PO QPM [facility] PRN Reason: Protocol Stop: 01/08/18 16:59 Last Admin: 11/11/17 18:10 Dose: 10 mg Tamsulosin HCl (Flomax) 0.4 mg PO DAILY [facility] Stop: 01/09/18 08:59 Last Admin: 11/12/17 10:30 Dose: 0.4 mg Temazepam (Restoril) 15 mg PO HS PRN; Protocol PRN Reason: Insomnia Stop: 01/08/18 13:19 Last Admin: 11/11/17 21:52 Dose: 15 mg Vitamin E (Vitamin E) 1,000 iu PO DAILY [facility] Stop: 01/09/18 08:59 Last Admin: 11/12/17 10:30 Dose: 1,000 iu General: alert HEENT: NC/AT, PERRLA Neck: Supple Lungs: CTAB Cardiovascular: RRR, Normal S1, Normal S2 Abdomen: soft, non-tender, non-distended Neurological: alert Internal Medicine Assmt/Plan - Assessment Assessment: suicidal ideation hx cad 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
--- NOTE | 2017-11-13 01:57 | Progress Notes ---
DATE: 11/12/2017 SUBJECTIVE: Staff was spoken to. The patient is interviewed. Mood is noted to be less irritable. Insight and judgment are noted to be improving. Impulse control seems to be fair. The patient is stating that he is trying to participate in the groups, but his major concern seems to be not able to sleep well. The patient is stating that he is getting tired, but does not have enough sleep at nighttime. No side effects to the medications are noted. The patient's Seroquel is going to be changed to 50 mg at bedtime and the patient is going to be closely monitored and the patient's coping skills are noted to be improving. The patient's family has been coming and then visiting the patient. The patient is being managed with the 50 mg of Seroquel at nighttime. Since the depression is a concern, the patient is going to be started on a low dose of the Lexapro and he is started with 5 mg in the morning and gradually increased. The patient is able to tolerate it. JOB# [id number]
--- NOTE | 2017-11-13 02:02 | Consultation ---
DATE OF CONSULTATION: 11/10/2017 REQUESTING PHYSICIAN: Mariel Little M.D. TYPE OF CONSULTATION: Psychology. HISTORY OF PRESENT ILLNESS: The patient is a 77-year-old male who is being admitted on a voluntary basis due to what appears to be acute psychosis. According to record review and the patient's self report, the patient has been acting erratic as well as agitated. According to his family, the patient has been throwing items around the house. Upon interview, the patient is irritable and stated that he does not understand why he is being hospitalized. The patient denied any suicidal ideation, plan, or intention. The patient is guarded and somewhat suspicious. He stated he doesn't belong here. 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 PAST MEDICAL HISTORY: Please see history and physical by Dr. Wall. PAST PSYCHIATRIC HISTORY: Details are unknown by the patient as well as by record review. SUBSTANCE ABUSE HISTORY: None. The patient denied any. HOME MEDICATIONS: Please see medication reconciliation sheet. PSYCHOSOCIAL HISTORY: The patient apparently lives with his current , however, he is probably going to divorce her and has asked her to leave his house. 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 He stated his first 12 years ago and he remarried about 2 years ago. He states his currrent has a psychiatric history and he can no longer live with her due to the stress in the relationship. He states he has 3 children. His daughter may be visiting today and he expects his son and [id number] to arrive from [place] in a few days. He stated he most likely will discharge to his daughters house who lives near his home and that he will sell his current home. He states his oldest son is an real estate attorney and will help him with the ongoing arrangements. The patient denied any abuse history or any legal problems. The patient did state that he is adventism, but was not specific. MENTAL STATUS EXAMINATION: The patient appears to be his stated age. The patient's attitude superficially cooperative. Eye contact is poor. Mood is irritable. Affect is constricted. Thought process shows to be linear and logical with no apparent cognitive deficits. The patient seems to be having difficulty coping with the stress in his life. The patient denied any suicidal ideation, plan, or intention. However, record review indicates he has verbalized suicidal thoughts with a plan. The patient denied any auditory or visual hallucinations. It appears that the patient has some paranoid ideation and is verbalizing suspiciousness and some elements of conspiracy to have him hospitalized. Concentration is good; he answered correctly to serial 3 subtractions. He denies bereavement issues. The patient was able to answer yes or no questions to the clinical interview items. The patient is stating that he does not belong here and needs to be discharged. The patient is alert and oriented to self, person, and place, date and time. The patient was able to repeat 3 items given to him the first time. Immediate memory is intact. Short term memory and Long-term memory are intact. He was able to interpret proverbs. Insight is fair to poor. Judgment is compromised. 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 AXIS II: None. AXIS III: Per Dr. Wall. Please see H and P dictation. PLAN: The patient has been evaluated by Dr. Little for psychiatric evaluation and further management of the patient's psychotropic medications. The patient is being closely monitored and will be discharged home or to an outpatient facility once stabilized. We will provide a simple anxiety reduction skill and rehearse this for acquisition of the skill. The patient was able to verbally agree to no self harm and contract for safety by verbalizing any suicidal ideation to his Doctors and his family. We will provide coping strategies for phase of life issues. We will provide de-escalation as well as stress management to increase the patient's frustration tolerance and reduce the patient's agitation and irritability. The patient is denying any depression at this time but admits to anxiety and increased frustration with his circumstances. We will recommend to the family that he follow with both psychiatry and psychology for medication management and continued supportive therapy to assist with the overwhelming stressors he is experiencing. Thank you, Dr. Little for this consult and the opportunity to participate with you in this patient's care. JOB# [id number] [place]
[2017-11-13] MEDS: Aspirin 81mg Chewable Tab PO SCH (09:42)
[2017-11-13] MEDS: Escitalopram Oxalate 5 mg Tab PO SCH (09:43)
[2017-11-13] MEDS: Vitamin E 1,000 IU Sgl PO SCH (09:43)
[2017-11-13] MEDS: Multivitamin Tab PO SCH (09:43)
--- NOTE | 2017-11-13 13:02 | Internal Medicine Prog Note ---
Internal Medicine Subjective - Subjective Service Date: 11/13/17 Patient is:: awake Per staff patient has:: no adverse event, tolerating meds Internal Medicine Objective - Results Result Diagrams: 11/08/17 14:27 11/08/17 14:27 Recent Labs: Laboratory Last Values WBC 5.8 Th/cmm (4.8-10.8) 11/08/17 14:27 RBC 4.94 Mil/cmm (3.80-5.80) 11/08/17 14:27 Hgb 15.9 gm/dL (12-16) 11/08/17 14:27 Hct 46.8 % (41.0-60) 11/08/17 14:27 MCV 94.7 fl (80-99) 11/08/17 14:27 MCH 32.1 pg (27.0-31.0) H 11/08/17 14:27 MCHC Differential 33.9 pg (28.0-36.0) 11/08/17 14:27 RDW 13.3 % (11.5-20.0) 11/08/17 14:27 Plt Count 194 Th/cmm (150-400) 11/08/17 14:27 MPV 8.2 fl 11/08/17 14:27 Neutrophils % 62.6 % (40.0-80.0) 11/08/17 14:27 Lymphocytes % 21.6 % (20.0-50.0) 11/08/17 14:27 Monocytes % 12.4 % (2.0-10.0) H 11/08/17 14:27 Eosinophils % 3.3 % (0.0-5.0) 11/08/17 14:27 Basophils % 0.1 % (0.0-2.0) 11/08/17 14:27 Sodium 138 mEq/L (136-145) 11/08/17 14:27 Potassium 3.9 mEq/L (3.5-5.1) 11/08/17 14:27 Chloride 103 mEq/L (98-107) 11/08/17 14:27 Carbon Dioxide 28.6 mEq/L (21.0-31.0) 11/08/17 14:27 Anion Gap 10.3 (7.0-16.0) 11/08/17 14:27 BUN 16 mg/dL (7-25) 11/08/17 14:27 Creatinine 1.3 mg/dL (0.7-1.3) 11/08/17 14:27 Est GFR ( Amer) TNP 11/08/17 14:27 Est GFR (Non-Af Amer) TNP 11/08/17 14:27 BUN/Creatinine Ratio 12.3 11/08/17 14:27 Glucose 125 mg/dL (70-105) H 11/08/17 14:27 Calcium 8.9 mg/dL (8.6-10.3) 11/08/17 14:27 Total Bilirubin 0.7 mg/dL (0.3-1.0) 11/08/17 14:27 AST 19 U/L (13-39) 11/08/17 14:27 ALT 25 U/L (7-52) 11/08/17 14:27 Alkaline Phosphatase 78 U/L (34-104) 11/08/17 14:27 Total Protein 5.9 gm/dL (6.0-8.3) L 11/08/17 14:27 Albumin 3.8 gm/dL (4.2-5.5) L 11/08/17 14:27 Globulin 2.1 gm/dL 11/08/17 14: Albumin/Globulin Ratio 1.8 (1.0-1.8) 11/08/17 14:27 Triglycerides 189 mg/dL (<150) H 11/08/17 14:27 Cholesterol 109 mg/dL (<200) 11/08/17 14:27 LDL Cholesterol Direct 49 mg/dL (75-193) L 11/08/17 14:27 HDL Cholesterol 45 mg/dL (23-92) 11/08/17 14:27 TSH 2.55 uIU/ml (0.34-5.60) 11/08/17 14:27 Urine Source CLEAN C 11/08/17 14:27 Urine Color YELLOW 11/08/17 14:27 Urine Clarity CLEAR (CLEAR) 11/08/17 14:27 Urine pH 5.5 (4.6 - 8.0) 11/08/17 14:27 Ur Specific [place] >= 1.030 (1.005-1.030) 11/08/17 14:27 Urine Protein NEGATIVE mg/dL (NEGATIVE) 11/08/17 14:27 Urine Glucose (UA) NEGATIVE mg/dL (NEGATIVE) 11/08/17 14:27 Urine Ketones NEGATIVE mg/dL (NEGATIVE) 11/08/17 14:27 Urine Blood NEGATIVE (NEGATIVE) 11/08/17 14:27 Urine Nitrate NEGATIVE (NEGATIVE) 11/08/17 14:27 Urine Bilirubin NEGATIVE (NEGATIVE) 11/08/17 14:27 Urine Urobilinogen 0.2 E.U./dL (0.2 - 1.0) 11/08/17 14:27 Ur Leukocyte Esterase NEGATIVE (NEGATIVE) 11/08/17 14:27 Urine RBC NONE SEEN /hpf (0-5) 11/08/17 14:27 Urine WBC NONE SEEN /hpf (0-5) 11/08/17 14:27 Ur Epithelial Cells NONE SEEN /lpf (FEW) 11/08/17 14:27 Urine Bacteria NONE SEEN /hpf (NONE SEEN) 11/08/17 14:27 RPR NONREACTIVE (NONREACTIVE) 11/08/17 14:27 - Physical Exam Vitals and I&O: Vital Signs Temp 98.1 F 11/13/17 06:47 Pulse 79 11/13/17 09:42 Resp 20 11/13/17 06:47 BP 130/66 11/13/17 09:42 Pulse Ox 98 11/13/17 06:47 Intake & Output 11/12/17 11/13/17 11/13/17 18:59 06:59 18:59 Intake Total 420 Balance 420 Intake: Oral 420 Other: # Voids 1 Active Medications: Current Medications Acetaminophen (Tylenol) 650 mg PO Q4HR PRN PRN Reason: Mild Pain / Temp above 100 Stop: 01/07/18 18:44 Al Hydrox/Mg Hydrox/Simethicone (Maalox) 30 ml PO Q4HR PRN PRN Reason: GI DISTRESS Stop: 01/07/18 18:44 Aspirin (Aspirin Chewable) 81 mg PO DAILY [facility] Stop: 01/09/18 08:59 Last Admin: 11/13/17 09:42 Dose: 81 mg Carvedilol (Coreg) 6.25 mg PO BID [facility] Stop: 01/08/18 16:59 Last Admin: 11/13/17 09:42 Dose: 6.25 mg Clopidogrel Bisulfate (Plavix) 75 mg PO DAILY [facility] Stop: 01/09/18 08:59 Last Admin: 11/13/17 09:42 Dose: 75 mg Escitalopram Oxalate (Lexapro) 5 mg PO DAILY [facility] PRN Reason: Protocol Stop: 01/12/18 08:59 Last Admin: 11/13/17 09:43 Dose: 5 mg Finasteride (Proscar) 5 mg PO DAILY [facility] PRN Reason: Protocol Stop: 01/09/18 08:59 Last Admin: 11/13/17 09:43 Dose: 5 mg Lorazepam (Ativan) 0.5 mg PO Q4HR PRN; Protocol PRN Reason: Anxiety Stop: 12/08/17 18:44 Last Admin: 11/12/17 21:53 Dose: 0.5 mg Magnesium Hydroxide (Milk Of Magnesia) 30 ml PO HS PRN PRN Reason: Constipation Multivitamins/Vitamin C (Theragran) 1 tab PO DAILY [facility] Stop: 01/08/18 08:59 Last Admin: 11/13/17 09:43 Dose: 1 tab Naproxen (Naprosyn) 250 mg PO Q12H PRN PRN Reason: Pain (Mild) Stop: 01/08/18 13:19 Quetiapine Fumarate (Seroquel) 50 mg PO HS [facility] PRN Reason: Protocol Stop: 01/11/18 20:59 Last Admin: 11/12/17 21:00 Dose: 50 mg Simvastatin (Zocor) 10 mg PO QPM [facility] PRN Reason: Protocol Stop: 01/08/18 16:59 Last Admin: 11/12/17 17:53 Dose: 10 mg Tamsulosin HCl (Flomax) 0.4 mg PO DAILY LAKESHA Stop: 01/09/18 08:59 Last Admin: 11/13/17 09:43 Dose: 0.4 mg Temazepam (Restoril) 15 mg PO HS PRN; Protocol PRN Reason: Insomnia Stop: 01/08/18 13:19 Last Admin: 11/12/17 21:52 Dose: 15 mg Vitamin E (Vitamin E) 1,000 iu PO DAILY LAKESHA Stop: 01/09/18 08:59 Last Admin: 11/13/17 09:43 Dose: 1,000 iu General: alert HEENT: NC/AT, PERRLA Neck: Supple Lungs: CTAB Cardiovascular: RRR, Normal S1, Normal S2 Abdomen: soft, non-tender, non-distended Neurological: alert Internal Medicine Assmt/Plan - Assessment Assessment: suicidal ideation hx cad 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
--- NOTE | 2017-11-13 13:22 | Progress Notes ---
DATE: 11/13/2017 SUBJECTIVE: Staff was spoken to. The patient is interviewed. Mood is noted to be anxious. Affect is appropriate. The patient's coping skills are noted to be improving. Sleep and appetite also noted to be improving at this time. The patient is stating that he had a good night sleep last night after the dose of the Seroquel was increased to 50 mg at bedtime. The patient is reporting that his family has been trying to help him and they are trying to get all his belongings into a story and he is going to put the house on sale. ASSESSMENT: The patient's depression is resolving. If the patient continues to be doing this. Possibly patient is going to be discharged tomorrow. JOB# [id number]
[2017-11-14] MEDS: Vitamin E 1,000 IU Sgl PO SCH (08:45)
[2017-11-14] MEDS: Aspirin 81mg Chewable Tab PO SCH (08:46)
[2017-11-14] MEDS: Multivitamin Tab PO SCH (08:47)
[2017-11-14] MEDS: Escitalopram Oxalate 5 mg Tab PO SCH (08:47)
--- NOTE | 2017-11-14 13:08 | Progress Notes ---
DATE: 11/14/2017 PSYCHIATRIC PROGRESS NOTE SUBJECTIVE: Staff was spoken to. The patient is interviewed. Mood is noted to be anxious. Affect is appropriate. The patient is happy that the children have been helping him out and he states he is feeling much better since the time he came in. No side effects to the medications are noted. The patient has been able to verbalize the concerns rather than to act out. ASSESSMENT: The patient is stabilizing. PLAN: To discharge the patient today for followup on outpatient basis. JOB# [id number]
--- NOTE | 2017-11-15 00:03 | Progress Notes ---
DATE: 11/13/2017 SUBJECTIVE: The patient was seen and case discussed with staff. The patient appears to be improving and stated that his depression and anxiety seemed to be lessening. The discussion included possible discharge recommendations with respect to continued care. The patient's family, i.e., the patient's son and [id number] were also present and requested a family meeting and session. This was provided. All aspects of the patient's care were discussed as well as the recommendations and protocol for continued care post discharge. It was impressed upon the family to have a both Psychiatry and Psychology consult set up. The patient and family stated that the patient will be going to live at his daughter's home and that the patient's home would be put up for sale. They also discussed that his current has been asked to leave the home and that any legal matters will be discussed with the family and their consumer attorney. The patient stated that the marital discord has been going on for a long period of time and that he agreed to follow up with a psychologist or a family therapist to assist him in the separation and possible divorce proceedings. The patient was able to verbally contract for safety and no self-harm. OBJECTIVE: Mood: positive for mild anxiety. Patient denied depression. Affect: mood congruent. Thought shows to be linear and logical with a normal pattern of association. Patient denied any delusions, hallucinations or suicidal ideation. Behavior is compliant with care and treatment. ASSESSMENT: 1. Psychotic disorder, not otherwise specified, resolving. 2. Major depressive disorder, single episode, resolving. 3. Anxiety disorder, not otherwise specified, resolving. PLAN: As discussed above, the patient and the patient's family are very engaged in the total care for the patient as discussed in this session. Dr. Little indicates that if the patient shows continued improvement that a possible discharge would be on 11/14/2017. This commercial lines underwriter reviewed the protocol for any person who has verbalized suicidal ideation with respect to the importance and medical necessity of continued care with both Psychology and Psychiatry as soon as possible post-discharge. We reviewed coping strategies for the patient as well as phase of life issues and to reduce marital discord. The patient's son is an consumer attorney and will advise him with respect to legal issues. Thank you, Dr. Little for the opportunity to participate with you in this patient's care. [facility]# [id number] [place]
--- NOTE | 2017-11-17 17:16 | Discharge Summary ---
DATE OF DISCHARGE: 11/14/2017 IDENTIFYING DATA: The patient is a 77-year-old male living by himself. Information obtained by directly interviewing the patient as well as reviewing the admission papers. JUSTIFICATION OF HOSPITALIZATION: The patient is admitted on a voluntary basis in view of his acute agitation. CHIEF COMPLAINT: "I don't know what is happening here. There is not much for me to do in here." DIAGNOSES AT THE TIME OF ADMISSION: AXIS: Psychotic disorder, not otherwise specified. AXIS II: None. AXIS III: As per Dr. Wall. HISTORY OF PRESENT ILLNESS: Please refer to 11/09/2017 dictation done by me. Physical examination at the time of admission was done by Dr. Wall and is noted to be significant for coronary artery disease status post [place] and BPH. HOSPITAL COURSE AND RESPONSE TO TREATMENT: Blood work done at the hospitalization have been reviewed by Dr. Wall. HOSPITAL COURSE AND RESPONSE TO TREATMENT: The patient has been closely monitored on the inpatient unit, provided with supportive psychotherapy. The patient has been voicing suicidal ideation and hence the patient has been started with the escitalopram, which was given 5 mg in the morning. The patient has been complaining of insomnia and agitation and the patient has been placed on Seroquel, which was gradually increased to 50 mg at bedtime. With these medications, the patient has been observed and was noted to be doing fairly well. The patient had the family session and patient's family has been very supportive. They wanted to take care of the patient and hence the patient was discharged on 11/14/2017 with recommendation that he is going to be seeking treatment on an outpatient basis. MENTAL STATUS EXAMINATION: At the time of discharge, the patient's mood noted to be anxious. Affect is appropriate. Not suicidal or homicidal. The patient denies any auditory hallucinations or delusions are noted. Insight and judgment are fair. Impulse control is also noted to be fair. The patient denies any auditory hallucinations or delusions are noted. DIAGNOSES AT THE TIME OF DISCHARGE: AXIS I: Major depressive disorder, first episode with psychotic symptoms. AXIS II: None. AXIS III: As per Dr. Wall. AFTERCARE PLAN: The patient is discharged to [facility] to be followed up on an outpatient basis. PROGNOSIS: At the time of discharge noted to be fair with the treatment. JOB# [id number]
== END 2017-11-14 11:15 | disposition home or self-care (01) | DRG 885 ==
LOC: ER 13:09 → GERO 15:50
PROVIDERS: ADMIT Psychiatry & Neurology Psychiatry; ATTEND Psychiatry & Neurology Psychiatry
DX: F29 Unspecified psychosis not due to a substance or known physiological condition (principal); R45.851 Suicidal ideations; I25.10 Atherosclerotic heart disease of native coronary artery without angina pectoris; N40.0 Benign prostatic hyperplasia without lower urinary tract symptoms; F32.9 Major depressive disorder, single episode, unspecified; F41.9 Anxiety disorder, unspecified; Z88.0 Allergy status to penicillin; I25.2 Old myocardial infarction; Z82.49 Family history of ischemic heart disease and other diseases of the circulatory system; Z80.1 Family history of malignant neoplasm of trachea, bronchus and lung
CPT/HCPCS: 36415-UA; 80053-TC; 80061-TC; 81001-TC; 84443-TC; 85025-TC; 86592-TC; 93005; G0410; Z7610